=== PATIENT | male | born 1955 | race Caucasian/White ===

== ENCOUNTER 2017-09-07 15:18 | Emergency (ER) | payer SELFPAY ==
[~2017-09-07] VITALS: Ht 185.4 cm; Wt 81.9 kg
[2017-09-07 18:57] VITALS: BP 119/67
== END 2017-09-07 19:00 | disposition home or self-care (01) ==
LOC: EME 15:18
DX: T40.0X1A Poisoning by opium, accidental (unintentional), initial encounter (principal); R11.2 Nausea with vomiting, unspecified; R61 Generalized hyperhidrosis; F11.20 Opioid dependence, uncomplicated; F17.200 Nicotine dependence, unspecified, uncomplicated
CPT/HCPCS: 99281; 99284; J2405; J7030